=== PATIENT | male | born 1980 | race Caucasian/White ===

== ENCOUNTER → 2019-11-14 | Outpatient (CLI) | payer OTHER | LOC: MHCPAIN 12:24 | DX: M47.817 Spondylosis without myelopathy or radiculopathy, lumbosacral region (principal); M54.5 Low back pain; M53.3 Sacrococcygeal disorders, not elsewhere classified; G89.29 Other chronic pain; M96.1 Postlaminectomy syndrome, not elsewhere classified; M54.16 Radiculopathy, lumbar region | CPT/HCPCS: G0463 ==

== ENCOUNTER 2020-02-22 13:45 | Outpatient (RCR) | payer OTHER | END 2020-03-10 | disposition home or self-care (01) | LOC: MKS.ESL.PT | DX: M47.27 Other spondylosis with radiculopathy, lumbosacral region (principal) ==

== ENCOUNTER 2020-06-13 14:00 | Outpatient (RCR) | payer OTHER | END 2020-06-19 | disposition still patient (30) | LOC: MKS.ESL.PT | DX: M47.27 Other spondylosis with radiculopathy, lumbosacral region (principal) ==

== ENCOUNTER 2020-07-03 14:45 | Outpatient (RCR) | payer OTHER | END 2020-09-18 | LOC: MKS.ESL.PT | DX: M47.27 Other spondylosis with radiculopathy, lumbosacral region (principal) ==

== ENCOUNTER 2021-09-02 13:45 | Outpatient (RCR) | payer OTHER | END 2021-09-03 | disposition home or self-care (01) | LOC: MKS.ESL.PT | DX: M54.51 Vertebrogenic low back pain (principal) ==

== ENCOUNTER 2021-09-28 14:30 | Outpatient (RCR) | payer OTHER | END 2021-10-04 | disposition home or self-care (01) | LOC: MKS.ESL.PT | DX: M54.51 Vertebrogenic low back pain (principal) ==

== ENCOUNTER 2021-10-26 15:45 | Outpatient (RCR) | payer OTHER | END 2021-11-04 | disposition home or self-care (01) | LOC: WSPT | DX: M54.51 Vertebrogenic low back pain (principal) ==